=== PATIENT | female | born 1985 | race African-American/Black ===

== ENCOUNTER 2020-10-21 13:40 | Emergency (ER) | payer MEDICAID ==
[~2020-10-21] VITALS: Ht 154.9 cm; Wt 84.5 kg
[2020-10-21 13:41] VITALS: BP 113/58
--- NOTE | 2020-10-21 14:02 | NUR ---
Right groin pain x 7 days, now with rle swelling. no sob/cp. VSS
--- NOTE | 2020-10-21 14:50 | NUR ---
Patient given discharge instructions and they have confirmed that they understand the instructions. Patient ambulatory with steady gait.
== END 2020-10-21 14:52 | disposition home or self-care (01) ==
LOC: ED 14:46
DX: M72.2 Plantar fascial fibromatosis (principal); F17.210 Nicotine dependence, cigarettes, uncomplicated
CPT/HCPCS: 99283